=== PATIENT | female | born 1980 | race Caucasian/White ===

== ENCOUNTER 2016-10-29 08:57 | Observation (INO) | payer MEDICAID ==
[~2016-10-29] VITALS: Ht 154.9 cm; Wt 93.4 kg
[~2016-10-29 08:57] MED LIST: AMOXICILLIN; OMEP20TC10 PO; PRETAB GT
[2016-10-29 09:51] VITALS: BP 116/68
[2016-10-29] MEDS ORDERED: FAMO-90 PO (12:17)
== END 2016-10-29 13:15 | disposition home or self-care (01) ==
LOC: MLD 08:57
PROVIDERS: ADMIT Obstetrics & Gynecology; ATTEND Obstetrics & Gynecology
DX: O26.893 Other specified pregnancy related conditions, third trimester (principal); R10.9 Unspecified abdominal pain; Z3A.00 Weeks of gestation of pregnancy not specified
CPT/HCPCS: 59025; 76815; 81000; G0378; Q0092

== ENCOUNTER 2016-11-04 06:15 | Inpatient (IN) | payer MEDICAID ==
[~2016-11-04] VITALS: Ht 154.9 cm; Wt 94.3 kg
[~2016-11-04 06:15] MED LIST changes: -AMOXICILLIN; +FAMO-90 PO; -OMEP20TC10 PO
[2016-11-04] MEDS ORDERED: METHYLERGONOVINE 0.2 MG/ML AMP IM PRN (06:40)
[2016-11-04] MEDS ORDERED: OXYTOCIN 10 UNITS/ML VIAL IM SCH (06:40)
[2016-11-04] MEDS ORDERED: OXYTOCIN 20 UNITS/LR PREMIX 1,000 ML IV PRN (06:40)
[2016-11-04] MEDS ORDERED: CARBOPROST 250 MCG/ML AMP IM PRN (06:40)
[2016-11-04 07:48] LABS: APPEARANCE,URINE CLOUDY (CLEAR); BILIRUBIN,URINE NEGATIVE (NEGATIVE); BLOOD, URINE NEGATIVE (NEGATIVE); COLOR,URINE YELLOW (YELLOW); LEUKOCYTE ESTERASE ,URINE 2+ (NEGATIVE); NITRITE, URINE NEGATIVE (NEGATIVE); PH,URINE 5.5 (5.0-9.0); PROTEIN,URINE NEGATIVE (NEGATIVE); UGLUCOSE NEGATIVE (NEGATIVE); UROBILINOGEN,URINE 0.2 EU/dL (0.2 - 1)
[2016-11-04 07:49] LABS: BASOPHILS # (AUTO) 0.1 K/uL (0.00-0.22); BASOPHILS % (AUTO) 1.5 % (0.0-2.0); EOSINOPHILS # (AUTO) 0.1 K/uL (0-0.4); EOSINOPHILS % (AUTO) 1.7 % (0.0-4.0); HEMATOCRIT 38.3 % (36-48); HEMOGLOBIN 12.7 g/dL (12.0-16.0); LYMPHOCYTES # (AUTO) 2.2 K/uL (2.5-16.5); LYMPHOCYTES % (AUTO) 25.4 % (20.5-51.1); MEAN CORPUSCULAR HEMOGLOBIN 30 pg (27-31); MEAN CORPUSCULAR HGB CONC 33 g/dL (33-37); MEAN CORPUSCULAR VOLUME 90 fL (80-94); MONOCYTES # (AUTO) 0.6 K/uL (0.8-1.0); MONOCYTES % (AUTO) 7.1 % (1.7-9.3); NEUTROPHILS # (AUTO) 5.7 K/uL (1.8-7.7); NEUTROPHILS % (AUTO) 64.3 % (42.2-75.2); PLATELET COUNT (AUTO) 216 K/uL (140-450); RED BLOOD CELL COUNT(AUTO) 4.27 MIL/uL (4.20-5.40); RED CELL DISTRIBUTION WIDTH 14.6 % (11.6-13.7); WHITE BLOOD COUNT (AUTO) 8.7 K/uL (4.8-10.8)
[2016-11-04 07:59] LABS: BACTERIA,URINE 1+ /HPF (None Seen); MUCUS,URINE 1+ /LPF (None Seen); RBC,URINE 0-5 (RARE) /HPF (0-5); URINE AMORPHOUS URATE 1+ /HPF (None Seen)
[2016-11-04 08:08] LABS: ALBUMIN 2.3 g/dL (3.4-5.0); ANION GAP 14.8 (8-16); CALCIUM 8.1 mg/dL (8.5-10.1); CARBON DIOXIDE 21.2 mmol/L (21-32); CREATININE 0.5 mg/dL (0.6-1.3); TOTAL BILIRUBIN 0.3 mg/dL (0.0-1.0); TOTAL PROTEIN, SERUM 6.4 g/dL (6.4-8.2)
[2016-11-04] MEDS: LACTATED RINGERS 1,000 ML IV SCH ×2 (08:38→14:29)
[2016-11-04] MEDS ORDERED: OXYTOCIN 20 UNITS/LR PREMIX 1,000 ML IV ONE (10:02)
[2016-11-04] MEDS ORDERED: NALBUPHINE 10 MG/ML AMP IVP PRN (15:10)
[2016-11-04] MEDS ORDERED: NALBUPHINE HYDROCHLORIDE 10 MG/ML VIAL ONE (15:16)
[2016-11-04] MEDS ORDERED: ROPIVACAINE 0.2%/NS PREMIX 250 ML EPI ONE (15:23)
[2016-11-04] MEDS ORDERED: LIDOCAINE 1% 50 ML ONE (16:26)
[2016-11-04] MEDS ORDERED: OXYTOCIN 10 UNITS/ML VIAL ONE (16:28)
[2016-11-04] MEDS ORDERED: OXYTOCIN 20 UNITS/LR PREMIX 1,000 ML IV SCH (17:22)
[2016-11-04] MEDS ORDERED: ACETAMINOPHEN 325 MG TAB PO PRN (17:25)
[2016-11-04] MEDS ORDERED: MEASLES, MUMPS, AND RUBELLA 1 VIAL SQVAC PRN (17:25)
[2016-11-04] MEDS: oxyCODONE/APAP 5/325 MG 1 TAB TAB PO PRN (20:53)
[2016-11-04] MEDS ORDERED: oxyCODONE/APAP 5/325 MG 1 TAB TAB ONE (23:52)
--- NOTE | 2016-11-05 06:59 | NUR ---
PATIENT HAS BEEN SCREENED AND CATEGORIZED LOW NUTRITION RISK. PATIENT WILL BE SEEN WITHIN 7 DAYS OF ADMISSION. 11/10/16 DEANA MERCADO MS, RDN
[2016-11-05 08:08] LABS: BASOPHILS # (AUTO) 0.1 K/uL (0.00-0.22); BASOPHILS % (AUTO) 0.9 % (0.0-2.0); EOSINOPHILS # (AUTO) 0.2 K/uL (0-0.4); EOSINOPHILS % (AUTO) 1.8 % (0.0-4.0); HEMATOCRIT 35.6 % (36-48); HEMOGLOBIN 11.9 g/dL (12.0-16.0); LYMPHOCYTES % (AUTO) 17.5 % (20.5-51.1); MEAN CORPUSCULAR HEMOGLOBIN 30 pg (27-31); MEAN CORPUSCULAR HGB CONC 33 g/dL (33-37); MEAN CORPUSCULAR VOLUME 89 fL (80-94); MONOCYTES # (AUTO) 0.6 K/uL (0.8-1.0); MONOCYTES % (AUTO) 5.4 % (1.7-9.3); NEUTROPHILS # (AUTO) 8.5 K/uL (1.8-7.7); NEUTROPHILS % (AUTO) 74.4 % (42.2-75.2); PLATELET COUNT (AUTO) 203 K/uL (140-450); RED BLOOD CELL COUNT(AUTO) 3.99 MIL/uL (4.20-5.40); WHITE BLOOD COUNT (AUTO) 11.4 K/uL (4.8-10.8)
[2016-11-05] MEDS: oxyCODONE/APAP 5/325 MG 1 TAB TAB PO PRN (10:16)
[2016-11-06] MEDS ORDERED: ACET-2619 PO (17:27)
== END 2016-11-06 18:30 | disposition home or self-care (01) | DRG 560 ==
LOC: MFCC 06:15
PROVIDERS: ADMIT Obstetrics & Gynecology; ATTEND Obstetrics & Gynecology
PROC: 10E0XZZ Delivery of Products of Conception, External Approach (ICD-10-PCS; principal; 2016-11-04)
PROC: 10907ZC Drainage of Amniotic Fluid, Therapeutic from Products of Conception, Via Natural or Artificial Opening (ICD-10-PCS; 2016-11-04)
PROC: 3E0S3CZ (ICD-10-PCS; 2016-11-04)
PROC: 00HU33Z Insertion of Infusion Device into Spinal Canal, Percutaneous Approach (ICD-10-PCS; 2016-11-04)
PROC: 3E033VJ Introduction of Other Hormone into Peripheral Vein, Percutaneous Approach (ICD-10-PCS; 2016-11-04)
PROC: 3E0234Z Introduction of Serum, Toxoid and Vaccine into Muscle, Percutaneous Approach (ICD-10-PCS; 2016-11-05)
DX: O69.81X0 Labor and delivery complicated by cord around neck, without compression, not applicable or unspecified (principal); O75.89 Other specified complications of labor and delivery; Z37.0 Single live birth; Z3A.39 39 weeks gestation of pregnancy; Z23 Encounter for immunization
CPT/HCPCS: 36415; 51702; 59409; 76815; 80053; 81001; 85025; 86886; 86900; 86901; 87086; 90715; J2001; J2300; J2590; J2795; J7030; J7120; Q0092